=== PATIENT | female | born 1995 | race Caucasian/White ===

== ENCOUNTER 2016-08-02 11:58 | Emergency (ER) | payer BC, MEDICAID ==
[~2016-08-02] VITALS: Ht 167.6 cm; Wt 79.0 kg
[~2016-08-02 11:58] MED LIST: AMOXICILLIN500 MG OR; AMOXICILLIN500 MG PO; CEPHALEXIN500 MG PO; CIPROFLOXACN500 MG PO; NAPROSYN500 MG PO; NO; NO MEDS; PRENATAL1 TA1 PO; PYRIDIUM200 MG PO; SOMA350 MG PO; TYLENOL # 31 TA1 PO; ULTRAM50 MG PO
[2016-08-02] MEDS ORDERED: AFRIN 12 HOUR0.05 % (12:38)
[2016-08-02] MEDS ORDERED: MOTRIN800 MG PO (12:38)
[2016-08-02] MEDS ORDERED: TESSALON PER100 MG PO (12:38)
[2016-08-02 12:50] VITALS: BP 127/78
== END 2016-08-02 12:50 | disposition home or self-care (01) | DRG 153 ==
LOC: ED 11:58
DX: J06.9 Acute upper respiratory infection, unspecified (principal); R09.81 Nasal congestion; R05 Cough

== ENCOUNTER 2017-03-03 18:52 | Emergency (ER) | payer OTHER ==
[~2017-03-03] VITALS: Ht 167.6 cm; Wt 76.6 kg
[~2017-03-03 18:52] MED LIST changes: +AFRIN 12 HOUR0.05 %; +MOTRIN800 MG PO; +TESSALON PER100 MG PO
[2017-03-03 20:26] LABS: URINE BILIRUBIN - DIPSTICK NEGATIVE (NEGATIVE); URINE BLOOD DIPSTICK NEGATIVE (NEGATIVE); URINE COLOR YELLOW; URINE GLUCOSE - DIPSTICK NEGATIVE (NEGATIVE); URINE KETONE NEGATIVE (NEGATIVE); URINE LEUK ESTERASE SMALL (Negative); URINE NITRITE - DIPSTICK NEGATIVE (Negative); URINE PROTEIN - DIPSTICK NEGATIVE (NEG-TRACE); URINE SPECIFIC GRAVITY >=1.030; URINE UROBILINOGEN - DIPSTICK 0.2 E.U./dL (0.2)
[2017-03-03 20:28] LABS: URINE CLARITY HAZY
[2017-03-03 20:35] LABS: URINE CALCIUM OXALATE CRYSTALS FEW lpf; URINE SQUAMOUS EPITHELIAL CELL FEW EPI/hpf (0-FEW)
[2017-03-03] MEDS ORDERED: ORPHENADRINE100 MG PO (20:44)
[2017-03-03] MEDS ORDERED: ULTRAM50 M1 PO (20:44)
[2017-03-03 20:51] VITALS: BP 128/82
== END 2017-03-03 20:51 | disposition home or self-care (01) | DRG 552 ==
LOC: ED 18:52
PROVIDERS: Emergency Medicine
DX: S33.5XXA Sprain of ligaments of lumbar spine, initial encounter (principal); M54.2 Cervicalgia; V48.5XXA Car driver injured in noncollision transport accident in traffic accident, initial encounter; Z87.440 Personal history of urinary (tract) infections

== ENCOUNTER 2017-03-15 09:29 | Emergency (ER) | payer OTHER ==
[~2017-03-15] VITALS: Ht 167.6 cm; Wt 75.0 kg
[~2017-03-15 09:29] MED LIST changes: +ORPHENADRINE100 MG PO; +ULTRAM50 M1 PO
[2017-03-15] MEDS ORDERED: MOTRIN800 MG PO (09:50)
[2017-03-15 10:23] VITALS: BP 120/65
== END 2017-03-15 10:25 | disposition home or self-care (01) | DRG 951 ==
LOC: ED 09:29
DX: Z87.440 Personal history of urinary (tract) infections (principal); S93.491A Sprain of other ligament of right ankle, initial encounter; X50.0XXA Overexertion from strenuous movement or load, initial encounter; Y93.39 Activity, other involving climbing, rappelling and jumping off

== ENCOUNTER 2017-07-02 08:13 | Emergency (ER) | payer OTHER ==
[~2017-07-02] VITALS: Ht 167.6 cm; Wt 80.0 kg
[2017-07-02] MEDS ORDERED: TAM75CAP PO (08:38)
[2017-07-02] MEDS ORDERED: AMOXICILLIN500 MG PO (08:38)
[2017-07-02 08:45] VITALS: BP 128/70
== END 2017-07-02 08:46 | disposition home or self-care (01) | DRG 153 ==
LOC: ED 08:13
DX: J11.1 Influenza due to unidentified influenza virus with other respiratory manifestations (principal)

== ENCOUNTER 2017-09-14 10:38 | Emergency (ER) | payer OTHER ==
[~2017-09-14] VITALS: Ht 167.6 cm; Wt 75.0 kg
[~2017-09-14 10:38] MED LIST changes: +TAM75CAP PO
[2017-09-14 10:43] VITALS: BP 118/67
[2017-09-14] MEDS ORDERED: AFRIN 12 HOUR0.05 % (11:01)
== END 2017-09-14 11:02 | disposition home or self-care (01) | DRG 153 ==
LOC: ED 10:38
DX: J06.9 Acute upper respiratory infection, unspecified (principal)

== ENCOUNTER 2017-12-28 10:45 | Emergency (ER) | payer OTHER ==
[~2017-12-28] VITALS: Ht 167.6 cm; Wt 75.0 kg
[2017-12-28 11:34] VITALS: BP 123/556
[2017-12-28] MEDS ORDERED: TORADOL PO (12:29)
[2017-12-28] MEDS ORDERED: AMOXICILLIN500 M2 PO (12:29)
== END 2017-12-28 12:35 | disposition home or self-care (01) | DRG 153 ==
LOC: ED 10:45
DX: J02.9 Acute pharyngitis, unspecified (principal)

== ENCOUNTER 2018-04-09 10:10 | Emergency (ER) | payer OTHER ==
[~2018-04-09] VITALS: Ht 167.6 cm; Wt 75.0 kg
[~2018-04-09 10:10] MED LIST changes: +AMOXICILLIN500 M2 PO; +TORADOL PO
[2018-04-09] MEDS ORDERED: MEDDOSEPAK PO (11:27)
[2018-04-09 11:40] VITALS: BP 132/66
== END 2018-04-09 11:40 | disposition home or self-care (01) ==
LOC: ED 10:10
DX: L30.9 Dermatitis, unspecified (principal); J02.9 Acute pharyngitis, unspecified

== ENCOUNTER 2019-01-23 19:50 | Emergency (ER) | payer OTHER ==
[~2019-01-23] VITALS: Ht 167.6 cm; Wt 81.8 kg
[~2019-01-23 19:50] MED LIST changes: +MEDDOSEPAK PO
[2019-01-23 20:26] LABS: URINE BILIRUBIN - DIPSTICK NEGATIVE (NEGATIVE); URINE BLOOD DIPSTICK NEGATIVE (NEGATIVE); URINE COLOR YELLOW; URINE GLUCOSE - DIPSTICK NEGATIVE (NEGATIVE); URINE KETONE NEGATIVE (NEGATIVE); URINE LEUK ESTERASE SMALL (Negative); URINE NITRITE - DIPSTICK NEGATIVE (Negative); URINE PH 5.5 (4.5-8.0); URINE PROTEIN - DIPSTICK NEGATIVE (NEG-TRACE); URINE SPECIFIC GRAVITY >=1.030; URINE UROBILINOGEN - DIPSTICK 0.2 E.U./dL (0.2)
[2019-01-23 20:28] LABS: URINE CLARITY HAZY
[2019-01-23 20:35] LABS: URINE SQUAMOUS EPITHELIAL CELL FEW EPI/hpf (0-FEW)
[2019-01-23] MEDS ORDERED: KEFLEX500 M1 PO (21:07)
[2019-01-23] MEDS ORDERED: TESSALON PER100 MG PO (21:07)
[2019-01-23 21:16] VITALS: BP 134/80
== END 2019-01-23 21:27 | disposition home or self-care (01) ==
LOC: ED 19:50
PROVIDERS: Emergency Medicine
DX: R05 Cough (principal); N39.0 Urinary tract infection, site not specified